=== PATIENT | female | born 1995 | race Caucasian/White ===

== ENCOUNTER → 2022-10-09 | Emergency (ER) | payer SELFPAY ==
[~2022-10-09] VITALS: Ht 149.9 cm; Wt 49.9 kg
[~2022-10-09] MED LIST: LIDOCAINE 2%-EPI 1:100,000 20 ML VIAL ONE; TDAP DIPH,PERTUSS,TET VAC/PF 0.5 ML DISP.SYRIN IM ONE
--- NOTE | 2022-10-09 04:10 | NUR ---
Patient discharged to home in stable condition. Written and verbal after care instructions given. Patient verbalizes understanding of instructions. Stressed follow up or return to ER for worsening s/s. Patient walked out wiht steady gait accompainied by friend.
[2022-10-09 04:59] VITALS: BP 122/78
== END | disposition home or self-care (01) ==
LOC: EDBD 03:00 → ER 07:24
DX: S91.201A Unspecified open wound of right great toe with damage to nail, initial encounter (principal); F17.210 Nicotine dependence, cigarettes, uncomplicated; W51.XXXA Accidental striking against or bumped into by another person, initial encounter; Y93.89 Activity, other specified; Y92.89 Other specified places as the place of occurrence of the external cause; Y99.8 Other external cause status
CPT/HCPCS: A4663